=== PATIENT | female | born 1985 | race Caucasian/White ===

== ENCOUNTER 2023-02-07 09:02 | Outpatient (AMB) | payer OTHER, SELFPAY ==
--- NOTE | 2023-02-07 09:05 | A.OFFVIS_ITS ---
Intake Vital Signs 02/07/23 09:06 Height 5 ft 4 in Weight 223 lb 12.307 oz BMI 38.4 BP 134/80 Blood Pressure Location Rt brachial Position Sitting Pulse 85 Pulse Source Pulse Oximeter Temp 97.3 F Temp Source Skin Pulse Oximetry (%) 98 Intake Visit Reasons: FM Intake Note: * New pt presents today for FM consult. * C/o widespread pain and exhaustion. 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 Since the of her last child 10 years ago she has been having diffuse body pain. She gets pain in multiple areas including her neck, her back, her shoulders knees. Occasionally gets tingling and numbness sensation. She states that she is physically able, she walks 3 to 4 times a week, 4 miles per walk, occasionally goes to the gym and does water exercises with her mother. She has history of anxiety and depression, history of depression after the of her last child 10 years ago. She is in the process of finding a psychotherapist. There is no known family history of autoimmune rheumatic disease. She denies any history of DVT/PE [facility] Medical History Anxiety and depression Arthralgia Carpal tunnel syndrome, bilateral Myalgia Surgical History Hx of section Family History Mother Thyroid cancer COPD (chronic obstructive pulmonary disease) Coronary artery disease Arthritis Diabetes Father Diabetes Other Family history of breast cancer Family history of lung cancer Social History Household Members: Children Alcohol intake: current Alcohol intake frequency: a few times a month Patient Tobacco Use Status: Current someday Tobacco user Current occupational status: employed Current occupation: [employer] Female Reproductive History Menstrual Total pregnancies: 3 Number of Living Children: 3 Review of Systems Const Reports fatigue and Reports weakness Musc Reports arthralgias, Reports muscle weakness, Reports stiffness and Reports tingling Neuro Reports tingling and Reports weakness Psych Reports abnormal sleep pattern, Reports anxiety and Reports depression Endo Reports fatigue Physical Exam Vital Signs: Last Vital Signs Temp 97.3 F 02/07/23 09:06 Pulse 85 02/07/23 09:06 BP 134/80 02/07/23 09:06 Pulse Ox 98 02/07/23 09:06 BMI result Body Mass Index 38.4 Const General: cooperative, healthy appearing and comfortable Nutritional Appearance: obese morbidly obese Orientation/consciousness: patient oriented x3 Limitations: no limitations HEENT Head: Yes normocephalic and Yes atraumatic Mouth: moist mucous membranes Resp Effort & Inspection: normal respiratory effort and able to speak in complete sentences Auscultation: clear to auscultation bilaterally Cardio Rate: regular rate GI Inspection: No distended Palpation (GI): Soft to palpation and nontender Neuro General: patient oriented x3 Extrem Other: Few fibromyalgia tender points. No active synovitis Results Reviewed Results Reviewed: Labs 10/2022? RF/NARA negative? Lyme screen negative? HbA1c 5.4%? CBC unremarkable? CMP unremarkable Assessment & Plan Assessment & Plan (1) Fibromyalgia, primary: Code(s): M79.7 - Fibromyalgia Plan: This is a 37-year-old female who presents for evaluation of diffuse pain. I do not see any signs of autoimmune rheumatic disease upon my evaluation. Clinical picture consistent with fibromyalgia. Discussed management of fibromyalgia with patient. Is a noninflammatory, non- autoimmune central afferent processing disorder leading to a diffuse pain syndrome. I suggested that patient try to address her underlying psychiatric issues, anxiety/depression. I suggested evaluation by a therapist. Advised patient to request a sleep study from her PCP to evaluate for obstructive sleep apnea. Try to follow sleep hygiene practices. Discuss CBT for sleep with psychotherapist. Patient is quite active, she walks 3-4 miles 3 to 4 times a week, she goes to the gym and does water exercises. I reassured patient about her condition and I educated her about fibromyalgia. Follow-up as needed Coding Level of Care Code New Pt Level 3 (69353) Diagnoses Fibromyalgia, primary M79.7
[2023-02-07 09:06] VITALS: BP 134/80; PULSE 85; TEMP 36.3; O2SAT 98; BMI 38.4
== END 2023-02-07 11:28 | disposition home or self-care (01) ==
PROVIDERS: PCP Pediatrics; Referring Provider Registered Nurse; Visit Provider Student in an Organized Health Care Education/Training Program
DX: M79.7 Fibromyalgia (principal)
CPT/HCPCS: 99203

== ENCOUNTER → 2023-02-07 09:02 | Outpatient (BNVA) | payer OTHER, SELFPAY | PROVIDERS: PCP Pediatrics; Referring Provider Registered Nurse; Visit Provider Student in an Organized Health Care Education/Training Program | DX: M79.7 Fibromyalgia (principal) | CPT/HCPCS: 99202 ==